=== PATIENT | male | born 1965 | race Caucasian/White ===

== ENCOUNTER 2018-05-08 14:48 | Emergency (ER) | payer OTHER ==
[~2018-05-08] VITALS: Ht 185.4 cm; Wt 117.9 kg
[~2018-05-08 14:48] MED LIST: CLINDAMYCIN HC300 MG PO; CYCLOBENZAPRINE10 MG PO; IBUPROFEN600 MG PO
[2018-05-08] MEDS ORDERED: KETOROLAC TROME10 MG PO (17:51)
[2018-05-08] MEDS ORDERED: CYCLOBENZAPRINE10 MG PO (17:51)
== END 2018-05-08 18:00 | disposition home or self-care (01) ==
LOC: ED 14:48
DX: M54.5 Low back pain (principal); Z76.0 Encounter for issue of repeat prescription; Z88.0 Allergy status to penicillin; Z79.899 Other long term (current) drug therapy
CPT/HCPCS: 99283

== ENCOUNTER 2018-08-18 09:38 | Emergency (ER) | payer OTHER ==
[~2018-08-18] VITALS: Ht 185.4 cm; Wt 131.5 kg
[~2018-08-18 09:38] MED LIST changes: +KETOROLAC TROME10 MG PO
[2018-08-18] MEDS ORDERED: LISINOPRIL10 MG PO (10:53)
[2018-08-18] MEDS ORDERED: CYCLOBENZAPRINE10 MG PO (10:53)
== END 2018-08-18 11:05 | disposition home or self-care (01) ==
LOC: ED 09:38
DX: G89.29 Other chronic pain (principal); M54.9 Dorsalgia, unspecified; M62.830 Muscle spasm of back; I10 Essential (primary) hypertension; Z88.0 Allergy status to penicillin
CPT/HCPCS: 99283

== ENCOUNTER 2019-09-23 18:20 | Emergency (ER) | payer OTHER ==
[~2019-09-23] VITALS: Ht 185.4 cm; Wt 131.5 kg
[~2019-09-23 18:20] MED LIST changes: +LISINOPRIL10 MG PO
[2019-09-23] MEDS ORDERED: DICLOFENAC SODI75 MG PO (19:18)
[2019-09-23] MEDS ORDERED: MELOXICAM15 MG PO (19:22)
--- NOTE | 2019-09-24 07:33 | EKG ---
[facility] [address] [facility] [facility] [place], [place] [address] Signed Sinus tachycardia Otherwise normal ECG No previous ECGs available Confirmed by VIRIDIANA DAVIS MD ([id number] on 09/24/2019 7:33:36 AM Electronically Signed By: VIRIDIANA DAVIS MD 09/24/19 0733 PATIENT NAME: TUAN GANN Electrocardiogram DATE OF : 61 PHYSICIAN: VIRIDIANA DAVIS MD REPORT #: [id number] REPORT IS CONFIDENTIAL AND NOT TO BE RELEASED WITHOUT AUTHORIZATION
== END 2019-09-23 19:56 | disposition home or self-care (01) ==
LOC: ED 18:20
DX: S16.1XXA Strain of muscle, fascia and tendon at neck level, initial encounter (principal); S29.012A Strain of muscle and tendon of back wall of thorax, initial encounter; E11.9 Type 2 diabetes mellitus without complications; I10 Essential (primary) hypertension; Z88.8 Allergy status to other drugs, medicaments and biological substances; Z88.0 Allergy status to penicillin; Z79.899 Other long term (current) drug therapy; W19.XXXA Unspecified fall, initial encounter
CPT/HCPCS: 93005; 93010; 99284-25

== ENCOUNTER 2021-04-14 00:06 | Emergency (ER) | payer OTHER ==
[~2021-04-14] VITALS: Ht 185.4 cm; Wt 124.5 kg
[~2021-04-14 00:06] MED LIST changes: +DICLOFENAC SODI75 MG PO; +MELOXICAM15 MG PO
[2021-04-14] MEDS ORDERED: CYCLOBENZAPRINE10 MG PO (00:20)
[2021-04-14] MEDS ORDERED: METFORMIN HCL500 M1 PO (00:21)
== END 2021-04-14 04:00 | disposition home or self-care (01) ==
LOC: ED 00:06
DX: U07.1 COVID-19 (principal); Z23 Encounter for immunization; E11.9 Type 2 diabetes mellitus without complications; I10 Essential (primary) hypertension; Z88.8 Allergy status to other drugs, medicaments and biological substances; Z88.0 Allergy status to penicillin; Z79.899 Other long term (current) drug therapy; Z79.84 Long term (current) use of oral hypoglycemic drugs
CPT/HCPCS: 71045; 99285-25; C9803; M0243; Q0244; U0003

== ENCOUNTER 2021-04-14 06:35 | Emergency (ER) | payer OTHER ==
[~2021-04-14] VITALS: Ht 185.4 cm; Wt 123.0 kg
[~2021-04-14 06:35] MED LIST changes: +METFORMIN HCL500 M1 PO
--- OUTSIDE RECORDS SUMMARY | 2021-04-14 06:42 | XMS ---
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 - 2 Visits in 30 Days CARE PROVIDERS There are no care providers on record at this time. Hollis has no Care Guidelines for this patient. Kandis VISIT COUNT (12 MO.) [address] [facility] TOTAL [facility] NOTE: Visits indicate total known visits. ED/C VISIT TRACKING (12 MO.) [facility] COMPLAINT: - COVID + 04/14/2021 00:07 [facility] TYPE: Emergency COMPLAINT: - SOB 06/20/2020 23:22 [facility] [place] TYPE: Emergency COMPLAINT: - EAR PEICE STUCK IN EAR INPATIENT VISIT TRACKING (12 MO.) No inpatient visits to display in this time frame [email or web address]
== END 2021-04-14 08:49 | disposition home or self-care (01) ==
LOC: ED 06:35
DX: U07.1 COVID-19 (principal); E11.9 Type 2 diabetes mellitus without complications; I10 Essential (primary) hypertension; Z88.8 Allergy status to other drugs, medicaments and biological substances; Z88.0 Allergy status to penicillin; Z79.899 Other long term (current) drug therapy
CPT/HCPCS: 99284

== ENCOUNTER 2021-04-14 17:28 | Emergency (ER) | payer OTHER ==
[~2021-04-14] VITALS: Ht 185.4 cm; Wt 123.0 kg
--- OUTSIDE RECORDS SUMMARY | 2021-04-14 17:36 | XMS ---
PreManage Notification: TUAN GANN Security Abstract Checker Events No recent Security Events currently on file CRITERIA MET - [facility] - 2 Visits in 30 Days CARE PROVIDERS There are no care providers on record at this time. Hollis has no Care Guidelines for this patient. [facility]12 MO[facility] NOTE: Visits indicate total known visits. ED/C VISIT TRACKING (12 MO.) 04/14/2021 17:[address] [facility] [address] [facility] [place] TYPE: Emergency COMPLAINT: - WEAKNESS 04/14/2021 06:36 [facility] [place] TYPE: Emergency COMPLAINT: - COVID + 04/14/2021 00:07 [facility] [place] TYPE: Emergency COMPLAINT: - SOB 06/20/2020 23:22 [facility] [place] TYPE: Emergency COMPLAINT: - EAR PEICE STUCK IN EAR INPATIENT VISIT TRACKING (12 MO.) No inpatient visits to display in this time frame [email or web address]
== END 2021-04-14 19:35 | disposition home or self-care (01) ==
LOC: ED 17:28
DX: U07.1 COVID-19 (principal); E11.9 Type 2 diabetes mellitus without complications; I10 Essential (primary) hypertension; Z88.8 Allergy status to other drugs, medicaments and biological substances; Z88.0 Allergy status to penicillin; Z79.899 Other long term (current) drug therapy; Z79.84 Long term (current) use of oral hypoglycemic drugs
CPT/HCPCS: 86140; 99283